=== PATIENT | male | born 1935 | race Caucasian/White ===

== ENCOUNTER 2017-09-05 05:30 | Day surgery (SDC) | payer MEDICARE, OTHER ==
[~2017-09-05] VITALS: Ht 180.3 cm; Wt 71.5 kg
[~2017-09-05 05:30] MED LIST: MECL25CH PO; RIVA20 PO; ROSU40 PO; TAB-TAB PO; ZOLP5TAB3 PO
[2017-09-05] MEDS ORDERED: IOHEXOL 350 MG/ML 50 ML BTL (for Cath Lab) OTHER ONE (05:31)
[2017-09-05] MEDS ORDERED: NS 1000P @30 MLS/HR (KVO) IV SCH (06:15)
[2017-09-05 06:25] VITALS: BP 123/57; PULSE 51; RESP 17; TEMP 97.7; O2SAT 99
[2017-09-05] MEDS ORDERED: APIX5TAB PO (06:31)
[2017-09-05] MEDS ORDERED: MULT400T PO (06:31)
[2017-09-05] MEDS ORDERED: ROSU20 PO (06:31)
[2017-09-05] MEDS ORDERED: META48.53 PO (06:31)
[2017-09-05] MEDS ORDERED: TUMS500C CHEW (06:31)
[2017-09-05] MEDS ORDERED: AMBI10TA PO (06:31)
[2017-09-05] MEDS ORDERED: STOO100C (06:31)
[2017-09-05 06:37] LABS: AUTOMATED NEUTROPHIL # 3.8 TH/MM3 (1.8-7.7); BASOPHIL % 0.7 % (0.0-2.0); EOSINOPHIL # 0.6 TH/MM3 (0-0.4); EOSINOPHIL % 10.1 % (0.0-4.0); HEMATOCRIT 41.5 % (39.0-51.0); HEMO FLAGS DIFF FINAL; LYMPH % 14.6 % (9.0-44.0); LYMPHOCYTE # 0.9 TH/MM3 (1.0-4.8); MEAN CELL VOLUME 92.4 FL (80.0-100.0); MEAN CORPUSCULAR HEMOGLOBIN 31.2 PG (27.0-34.0); MEAN CORPUSCULAR HGB CONC 33.8 % (32.0-36.0); NEUT % 63.6 % (16.0-70.0); PLATELET COUNT 135 TH/MM3 (150-450); RED BLOOD COUNT 4.49 MIL/MM3 (4.50-5.90); RED CELL DISTRIBUTION WIDTH 12.6 % (11.6-17.2)
[2017-09-05 06:54] LABS: BICARBONATE 26.7 MEQ/L (21.0-32.0)
[2017-09-05] MEDS ORDERED: HEPARIN-NS/PF INJ 1,000 ML ONE (07:26)
[2017-09-05] MEDS ORDERED: MIDAZOLAM HCL 2 MG/2 ML VIAL ONE (07:26)
[2017-09-05 07:35] LABS: APTT (PATIENT) 24.8 SEC (24.3-30.1); PROTHROMBIN TIME - PATIENT 11.4 SEC (9.8-11.6)
[2017-09-05] MEDS ORDERED: HEPARIN SODIUM - IV 10,000 UNITS/10 ML VIAL ONE (08:06)
--- NOTE | 2017-09-05 08:31 | CATHPROC ---
[facility] HIS Report Study Information Study Number Admission Scheduled Start Study Start [id number] Sep 05 2017 5:30AM 09/05/2017 Sep 05 2017 7:16AM [place] Service Cardiac Catheterization Admit Source Facility Department Other [facility] - [employer] Physician and Clinical Staff Initial Gaurav Washington Internship Coordinator Cecilio Lenz,PAUL Recorder Rupert Mckeon RCIS(BS) Scrub Carmelita Platt RCIS TECH2 Procedures Performed Procedure Location (Site) Vessel Name Coronary Angiograms LCA Left Coronary Coronary Angiograms RCA Right Coronary Wire insertion Fem Art (right) Femoral Art Equipment Time Defensive Fire Control Systems Operator Description Size Mfg Part Number Used/Scraped [id number] 07:42 WARNER VALERO SWAN MCKAYLA CATHETER FR 7 Used *[id number] TRANSDUCER, TRUWAVE [id number] 07:42 WARNER VALERO * Used W/STOCKCOCK *[id number] TRANSDUCER, TRUWAVE [id number] 07:42 WARNER VALERO * Used W/STOCKCOCK *[id number] *[id number] *[id number] *[id number] 07:42 MEDLINE INDUSTRIES PACK, CCL CUSTOM * Used *[id number] 07:42 Excelera PACER PEN, SKIN DUAL W/ RULER * Used *[id number] 07:44 MERIT MEDICAL SHEATH, FR6.5 PRELUDE 11CM FR 6.5 038ACT Used *[id number] 07:42 MERIT MEDICAL WIRE, 3MMJ .035 180CM 180CM Used *[id number] 07:42 NAMIC MANIFOLD, 2 PORT * Used *[id number] 07:42 NAMIC MANIFOLD, 4 PORT * Used *[id number] 07:56 NYCOMED OMNIPAQUE, 350 MG, 150ML 150ML [id number] Used [id number] 07:42 PEDRO MEDICAL BLANKET,WARM AIR CCL * Used *[id number] 07:42 TERUMO MEDICAL SHEATH, FR7 TERUMO (10CM) FR 7 Used *[id number] 08:05 [place] PRIME WIRE, VERRATA 185CM 185CM 19646 *[id number] Used Equipment Model, Serial, Lot Number and Expiration Data Description Model Number Serial Number Lot Number Expiration Date PRIME WIRE, VERRATA 185CM [id number] 07-14-2020 Labs Hgb (g/dl) Hct (%) RBC (MIL/MM3) WBC (l/cumm) Platelets (thousands) 11.60-17.00 35.00-51.00 4.00-5.90 4.00-11.00 150.00-450.00 14.0 41.5 4.4 6 135 Glucose (mg/dl) BUN (mg/dl) Creatinine (mg/dl) BUN:Creatinine (1:x) 74.00-106.00 7.00-18.00 0.50-1.30 10.00-20.00 87 17 1.0 17 Na (meq/l) K (meq/l) 136.00-145.00 3.50-5.10 140 4 CPK-MB (ng/ML) 0.50-3.60 Not Drawn Medication Medication Total Dose (Bolus/Oral) Medication Total Dosage/Unit 1% XYLOCAINE 20 mL HEPARIN 5000 units NTG (IC) 200 mcg VERSED 1 mg Medications (Bolus/Oral) Medication Time Given Dosage/Unit Administered By Reason VERSED 09/05/2017 7:39:51 AM 1 mg Cecilio Lenz 1 mg VERSED given in lab by Cecilio Lenz RN in Left Forearm via Peripheral IV. Ordered by Gaurav Valenzuela. 1% XYLOCAINE 09/05/2017 7:40:48 AM 20 mL Gaurav Valenzuela 20 mL 1% XYLOCAINE given in lab by Gaurav Valenzuela in Right Groin via Subcutaneous. Ordered by Gaurav Valenzuela. HEPARIN 09/05/2017 8:06:36 AM 5000 units Cecilio Lenz 5000 units HEPARIN given in lab by Cecilio Lenz, RN in Left Forearm via Peripheral IV. Ordered by Gaurav Corrales. NTG (IC) 09/05/2017 8:15:39 AM 200 mcg Gaurav Valenzuela 200 mcg NTG (IC) given in lab by Gaurav Valenzuela via Intra-coronary. Ordered by Gaurav Valenzuela. Medication (Drip) Medication Time Given Dosage/Unit Concentration/Unit Diluent (ml) Solution IV Solutions 09/05/2017 7:20:02 AM 0 mL (IV) 500 NaCl .9 Patient arrived on IV Solutions in Left Forearm via Peripheral IV. Pump/Drip Flow = 20 ml/hr using Na Cl .9. Ordered by Gaurav Valenzuela. Initial Case Assessment Cardiovascular HR Rhythm NIBP Chest Pain 52 SINUS ERASMO 137/64 0 Edema Present Skin color Skin None Normal Warm Dry Circulatory - Right Pulses Dorsalis Pedis Femoral 1 1 Scale (0,1,2,3,4,d) Circulatory - Left Pulses Dorsalis Pedis Femoral 1 1 Scale (0,1,2,3,4,d) Circulatory - Lower Extremities Color Lower Right Color Lower Left Normal Normal Neurological State Oriented to time-place- Alert Moves all extremities person Respiration - General Respiration Rate SpO2 (%) (B/min) 18 100 Chronological Log Time Study Chronological Log 7:19:45 Patient arrived via Bed. 7:19:46 Patient Name, D.O.B, / Armband Verified By R.N. 7:19:46 Consent signed by the physician and the patient and verified by the [employer] staff. 7:19:47 Pre-op and post- op instructions given; patient acknowledges understanding of instructions. 7:19:48 Verbal Stimulation=2 Physical Stimulation=2 Airway=2 Respiration=2 TOTAL=8. (0=absent, 1=li mited, 2=present) 7:19:53 Patient has been NPO for More than 6Hrs. 7:19:54 Skin Breakdown- 7:19:55 Patient Warmer Placed on the Table. 7:20:01 A # 20 IV was noted in the Forearm (left). Grade = 0 Patient arrived on IV Solutions in Left Forearm via Peripheral IV. Pump/Drip Flow = 20 ml/hr us ing NaCl .9. Ordered by 7:20:02 Gaurav Valenzuela. 7:20:03 History and physical on the chart or being dictated. Assessment: Initial Case, HR=52 BPM, Rhythm=SINUS ERASMO, LYQN=937/64 mmhg, Chest Pain=0, Edema=N one, Color=Normal, Skin = Warm, Dry Right Pulses: Stan Ped=1, Femoral=1 Left Pulses: Stan Ped=1, Femoral=1 7:20:04 Lower Right Extremities: Color=Normal Lower Left Extremities: Color=Normal Neurological: State=Alert, Ox3, LOPEZ Respiration: Resp=18 B/min, RvI2=563 % 7:26:01 Reference ECG taken Vitals capture started with the following parameters, Patient=Adult, Interval=5 min, Initial Pre yszhw=669 mmHg, 7:28:02 Deflation Rate=5 mmHg, Cuff placed on Right Arm 7:30:23 Vitals capture stopped. Vitals capture started with the following parameters, Patient=Adult, Interval=5 min, Initial Pre yatzy=581 mmHg, 7:30:47 Deflation Rate=5 mmHg, Cuff placed on Right Arm 7:31:29 HR=48 bpm, XFJQ=112/60 mmhg, SpO2=99.0 %, Resp=20 B/min, Pain=0, Gena=10, Espinoza=2 7:33:10 Right groin prepped with 2% chlorhexidine, and draped after a 3 min. waiting time. 7:35:12 MD arrived. 7:36:22 HR=51 bpm, OOMY=325/64 mmhg, HhA1=306.0 %, Resp=16 B/min, Pain=0, Gena=10, Espinoza=2 Time Out. Correct patient, correct procedure, correct physician, power injector loaded, or not l oaded with contrast with 7:38:00 surgical team present. Time Out Concurred by MD and individual staff in procedure. 7:39:00 Case Start 7:39:51 1 mg VERSED given in lab by Cecilio Lenz RN in Left Forearm via Peripheral IV. Ordered by Gaurav Valenzuela. 7:40:48 20 mL 1% XYLOCAINE given in lab by Gaurav Valenzuela in Right Groin via Subcutaneous. Ordered by Gaurav Valenzuela. 7:41:27 HR=50 bpm, YCQI=737/62 mmhg, XrU1=275.0 %, Resp=15 B/min, Pain=0, Gena=10, Espinoza=2 7:41:36 Pressure channel 1 zeroed. 7:43:36 Access site was Right Femoral Artery. 7:43:50 A SHEATH, FR6.5 PRELUDE 11CM FR 6.5 was advanced into the Fem Art (right) using the Percutan eous technique. 7:45:12 Access site was Right Femoral Vein. 7:45:30 A SHEATH, FR7 TERUMO (10CM) FR 7 was advanced into the Fem Vein (right) using the Percutaneo us technique. 7:45:42 A SWAN MCKAYLA CATHETER FR 7 was inserted via Fem Vein (right) 7:46:26 HR=47 bpm, HWAN=091/65 mmhg, SpO2=99.0 %, Resp=4 B/min, Pain=0, Gena=10, Espinoza=2 Recorded Pressure: RA, HR=52, Condition=Condition 1 7:47:52 (Right Atrium) RA /3/2 Recorded Pressure: RV, HR=51, Condition=Condition 1 7:48:17 (Right Ventricle) RV 24/-3/5 Recorded Pressure: PCW, HR=51, Condition=Condition 1 7:50:09 (Pulmonary Capillary Wedge) PCW Recorded Pressure: MPA, HR=60, Condition=Condition 1 7:50:26 (Main Pulmonary Artery) MPA 08/04/16 7:51:21 HR=54 bpm, ZQMC=269/79 mmhg, SpO2=78.0 %, Resp=18 B/min, Pain=0, Gena=10, Espinoza=2 Thermo CO: CO=3.9 l/m, HR=49 bpm, Condition=Condition 1. Used in calculation. 7:52:21 Equipment: Description and Size=SWAN MCKAYLA CATHETER FR 7, Type=Bath Probe, CC=0.579 Injectant: Temp=19.0 - 22.0 Celsius, Volume=10.0 ml Thermo CO: CO=3.9 l/m, HR=49 bpm, Condition=Condition 1. Used in calculation. 7:52:53 Equipment: Description and Size=SWAN MCKAYLA CATHETER FR 7, Type=Bath Probe, CC=0.579 Injectant: Temp=19.0 - 22.0 Celsius, Volume=10.0 ml 7:54:34 [place] Mckayla Catheter Removed A JL 5.0 INFINITI CATHETER FR 6 was advanced over a wire. OMNIPAQUE, 350 MG, 150ML 150ML was use d for 7:55:02 injections. Recorded Pressure: Ao, HR=49, Condition=Condition 1 7:56:16 (Aorta) Ao 126/46/76 7:56:26 HR=47 bpm, XHFF=354/61 mmhg, QbS4=287.0 %, Resp=9 B/min, Pain=0, Gena=10, Espinoza=2 7:56:56 The LCA was injected and visualized at various angles. OMNIPAQUE, 350 MG, 150ML 150ML used . 7:58:27 Catheter was removed A 3DRC INFINITI CATHETER FR 6 was advanced over a wire. OMNIPAQUE, 350 MG, 150ML 150ML was used for 7:58:28 injections. 8:00:22 The RCA was injected and visualized at various angles. OMNIPAQUE, 350 MG, 150ML 150ML used . 8:01:58 HR=45 bpm, HCXY=294/62 mmhg, Resp=6 B/min, Pain=0, Gena=10, Espinoza=2 8:04:45 Catheter was removed A JR 4.0 GUIDE CATHETER FR 6 was advanced over a wire. OMNIPAQUE, 350 MG, 150ML 150ML was used for 8:05:43 injections. 8:06:26 HR=50 bpm, GEAA=915/68 mmhg, SpO2=99.0 %, Resp=15 B/min, Pain=0, Gena=10, Espinoza=2 8:06:36 5000 units HEPARIN given in lab by Cecilio Lenz, PAUL in Left Forearm via Peripheral IV. Or dered by Gaurav Valenzuela. 8:08:22 Pressure channel 1 zeroed. 8:11:27 HR=53 bpm, XBAL=651/66 mmhg, HhJ9=581.0 %, Resp=14 B/min, Pain=0, Gena=10, Espinoza=2 8:12:17 A PRIME WIRE, VERRATA 185CM 185CM was inserted via Fem Art (right). 8:15:06 Interventional wire has crossed the lesion 8:15:39 200 mcg NTG (IC) given in lab by Gaurav Valenzuela via Intra-coronary. Ordered by Gaurav Valenzuela . 8:16:28 HR=59 bpm, GXFU=547/64 mmhg, TmS3=826.0 %, Resp=8 B/min, Pain=0, Gena=10, Espinoza=2 8:17:12 Flow Wire was was placed in the RCA. The FFR measures ~FFR~ percent. The IFR measures 0.9 3 Percent. 8:18:06 The PRIME WIRE, VERRATA 185CM 185CM was removed. 8:19:15 Catheter was removed 8:19:33 Case End 8:19:35 In the Fem Art (right) the SHEATH, FR6.5 PRELUDE 11CM FR 6.[address] by Gaurav Valenzuela. 8:20:44 In the Fem Vein (right) the SHEATH, FR7 TERUMO (10CM) FR [address] by Gaurav Valenzuela. 8:20:55 Sterile dressing applied to site 8:20:56 No case complications noted. 8:20:58 Cine recording checked. 8:21:00 Bedside Report will be given. 8:21:04 Contrast Scanned 8:21:06 A Left and Right Heart Cath was performed. 8:22:02 HR=55 bpm, YTBU=490/67 mmhg, SpO2=99.0 %, Resp=15 B/min, Pain=0, Gena=10, Espinoza=2 8:26:28 HR=51 bpm, TXRV=358/64 mmhg, GmF4=584.0 %, Resp=11 B/min, Pain=0, Gena=10, Espinoza=2 8:31:08 Patient moved to [facility] End Study - Contrast Media Used In Study Contrast Total Opened (mL) Total Used (mL) Total Wasted (mL) Omnipaque 45 45 0 End Study - Maximum Contrast Load Max Contrast Load (mL) 357.5 End Study - Radiation Exposure Fluoro Time (minutes) 10.2 End Study - Patient Disposition Complications Transferred To Telemetry Bed
[2017-09-05] MEDS ORDERED: SODIUM CHLOR 0.9% 1000 ML INJ 1,000 ML IV SCH (08:32)
[2017-09-05] MEDS ORDERED: ACETAMINOPHEN 325 MG TAB PO PRN (08:45)
[2017-09-05] MEDS ORDERED: oxyCODONE/ACETAMINOPHEN 5 MG/325 MG TAB PO PRN (08:45)
[2017-09-05] MEDS ORDERED: ONDANSETRON HCL 4 MG/2 ML VIAL IV PUSH PRN (08:45)
--- NOTE | 2017-09-05 09:02 | MA ---
cc: JOAQUÍN SRIVASTAVA M.D., JAVIER M.D. DATE 09/05/2017 PROCEDURE PERFORMED Right heart catheterization, coronary angiography. BRIEF HISTORY Reinaldo Jensen is an 82-year-old man with known severe aortic stenosis. Recently he developed an episode of light substernal chest pressure consistent with angina and he was advised to undergo cardiac cath. DESCRIPTION OF PROCEDURE The patient was brought to the cardiac laboratory phlebotomist in a fasting state. The right groin was prepped and draped in sterile fashion. Using 1% lidocaine for local anesthesia a 6.5-Marshallese sheath was inserted into the right femoral artery and right femoral vein. Right heart catheterization was then performed in a standard fashion using a [place]-Dre catheter coronary angiography was then completed using a left five Jose J for the left coronary artery and a 3DRC for the right coronary artery. The right coronary had borderline disease so it was decided to do IFR. A 6-Marshallese JR-4 guiding catheter was used to engage the right coronary artery, 200 mcg intracoronary nitroglycerin was given. The wires were placed distally in the distal portion of the right coronary artery beyond the bifurcation and the guide was backed out of the ostium for IFR measurement of 0.93 indicating stenoses were not hemodynamically significant. The catheter was removed. 5000 of heparin was given prior to this. The sheaths were sewn in place to be pulled later once the ACT comes down. There were no complications. FINDINGS I. HEMODYNAMICS Right atrial pressure was 6/3 with a mean of 2. Right ventricular pressure was 24/0 with an end-diastolic pressure of 5. Pulmonary artery pressure was 26/5 with a mean of 16. Pulmonary capillary wedge pressure was 9/7 with a mean of 6. Aortic pressure was 126/46 with a mean of 76. II. CORONARY ANGIOGRAPHY Prior to contrast administration there was extensive valvular and coronary artery calcification. The left main coronary artery is large and normal-appearing. The circumflex artery is diminutive in size and appears normal. The left anterior descending is a small-caliber. It gives off one major diagonal branch. The LAD stops short of the apex and appears normal. The diagonal branch also appears normal. Both these vessels are only 2-mm vessels. The right coronary artery is a large hyper-dominant vessel. The vessel has an ostial 40% stenosis. Distally there is probably 40% stenosis as well. There is a very large posterolateral branch system and significant posterior descending artery branch given off. IFR on the right coronary artery was 0.93. CONCLUSIONS 1. Known severe aortic stenosis. 2. The patient is symptomatic having had episode of chest pressure consistent with angina. 3. Normal right heart pressures. 4. Mild single-vessel coronary artery disease, not needing intervention. RECOMMENDATIONS Evaluation for TAVR. Joaquín Srivastava MD VEW/SSB /8:27 AM /8:52 AM
--- NOTE | 2017-09-05 09:49 | RADRPT ---
EXAM DATE/TIME: 09/05/2017 09:02 [place] COMPARISON: No previous studies available for comparison. INDICATIONS : Post op heart cath. MEDICAL HISTORY : None. SURGICAL HISTORY : None. ENCOUNTER: Initial ACUITY: 1 day PAIN SCORE: 0/10 LOCATION: Bilateral chest FINDINGS: 2 frontal views of the chest demonstrate the lungs to be symmetrically aerated without evidence of ma ss, infiltrate or effusion. The cardiomediastinal contours are unremarkable. Osseous structures are intact. CONCLUSION: No acute disease. Rajendra Cedeno Jr., MD on September 05, 2017 at 9:48 Board Certified Radiologist. This report was verified electronically.
--- NOTE | 2017-09-05 10:26 | EKG ---
Date Performed: 09/05/2017 Time Performed: 06:20:12 PTAGE: 82 years EKG: --- Warning: Data quality may affect interpretation --- Sinus bradycardia Prolonged QT inte rval Left axis deviation Possible anteroseptal infarct - age undetermined Inferior T wave changes are nonspecific Abnormal ECG Compared to prior tracing no significant change PREVIOUS TRACING : 12/28/2014 10.32 DOCTOR: Frank Ellis Interpretating Date/Time 09/05/2017 10:25:05
--- NOTE | 2017-09-05 15:40 | PD.CONS ---
History of Present Illness Service CT Surgery Consult Requested By Dr. Valenzuela Reason for Consult Severe aortic stenosis Primary Care Physician Emeka Barba MD Diagnoses: (1) Aortic stenosis (2) Diastolic CHF due to valvular disease (3) CAD (coronary artery disease) (4) Paroxysmal atrial fibrillation History of Present Illness 82y/o male with known h/o aortic valve disease x 10 yrs, recently presents with chest pressure at rest. He experienced this approximately a week ago and was seen by Dr. Valenzuela. He underwent ECHO which shows severe with a calculated AML of 0.44cm2, EF ~55%, mild to moderate AI and mild MR. LHC today is significant for mild single vessel CAD. He presents for evaluation for AVR. He has had a frailty evaluation and failed the walk test. He is otherwise active at home and independent. He has a h/o paroxysmal atrial fib for which he is anticoagulated. Review of Systems Constitutional: COMPLAINS OF: Fatigue, DENIES: Diaphoretic episodes, Fever, Weight gain, Weight loss, Chills, Dizziness, Change in appetite, Night Sweats Endocrine: DENIES: Heat/cold intolerance, Polydipsia, Polyuria, Polyphagia Eyes: DENIES: Blurred vision, Diplopia, Eye inflammation, Eye pain, Vision loss , Photosensitivity, Double Vision Ears, nose, mouth, throat: DENIES: Tinnitus, Hearing loss, Vertigo, Nasal discharge, Oral lesions, Throat pain, Hoarseness, Ear Pain, Running Nose, Epistaxis, Sinus Pain, Toothache, Odynophagia Respiratory: DENIES: Apneas, Cough, Snoring, Wheezing, Hemoptysis, Sputum production, Shortness of breath Cardiovascular: COMPLAINS OF: Chest pain, DENIES: Palpitations, Syncope, Dyspnea on Exertion, PND, Lower Extremity Edema, Orthopnea, Claudication Gastrointestinal: DENIES: Abdominal pain, Black stools, Bloody stools, Constipation, Diarrhea, Nausea, Vomiting, Difficulty Swallowing, Anorexia Genitourinary: DENIES: Sexual dysfunction, Urinary frequency, Urinary incontinence, Urgency, Hematuria, Dysuria, Nocturia, Penile Discharge, Testicular Pain, Testicular Swelling Musculoskeletal: DENIES: Joint pain, Muscle aches, Stiffness, Joint Swelling, Back pain, Neck pain Integumentary: DENIES: Abnormal pigmentation, Nail changes, Pruritus, Rash Hematologic/lymphatic: DENIES: Bruising, Lymphadenopathy Immunologic/allergic: DENIES: Eczema, Urticaria Neurologic: DENIES: Abnormal gait, Headache, Localized weakness, Paresthesias, Seizures, Speech Problems, Tremor, Poor Balance Psychiatric: DENIES: Anxiety, Confusion, Mood changes, Depression, Hallucinations, Agitation, Suicidal Ideation, Homicidal Ideation, Delusions Past Family Social History Allergies: Coded Allergies: No Known Allergies (Unverified , 09/05/17) Past Medical History BPH COPD Hyperlipidemia HTN MR PSVT as above Vertigo Past Surgical History Cardiac cath 07/13/2010 Cardioversion 06/2010 Tonsillectomy Reported Medications Magdieljg Vicky Eliquis Metamucil Multaq Stool softener Family History Dementia in mother Lymphoma - father Social History Retired from [employer] - 6yrs Remote smoking history - quit age 75 Physical Exam Vital Signs Vital Signs Date Time Temp Pulse Resp B/P (MAP) Pulse Ox O2 Delivery O2 Flow Rate FiO2 09/05/17 08:45 100 Room Air 09/05/17 06:25 97.7 51 17 123/57 (79) 99 Physical Exam GENERAL: This is a well-nourished, well-developed patient, in no apparent distress. SKIN: No rashes, ecchymoses or lesions. Cool and dry. HEAD: Atraumatic. Normocephalic. No temporal or scalp tenderness. EYES: Pupils equal round and reactive. Extraocular motions intact. No scleral icterus. No injection or drainage. ENT: Nose without bleeding, purulent drainage or septal hematoma. Throat without erythema, tonsillar hypertrophy or exudate. Uvula midline. Airway patent. NECK: Trachea midline. No JVD or lymphadenopathy. Supple, nontender, no meningeal signs. CARDIOVASCULAR: Irregular, 2/6 GHADA at the RUSB RESPIRATORY: Clear to auscultation. Breath sounds equal bilaterally. No wheezes , rales, or rhonchi. GASTROINTESTINAL: Abdomen soft, non-tender, nondistended. No hepato-splenomegaly , or palpable masses. No guarding. MUSCULOSKELETAL: Extremities without clubbing, cyanosis, or edema. No joint tenderness, effusion, or edema noted. No calf tenderness. Negative Homans sign bilaterally. NEUROLOGICAL: Awake and alert. Cranial nerves II through XII intact. Motor and sensory grossly within normal limits. Five out of 5 muscle strength in all muscle groups. Normal speech. Laboratory Laboratory Tests Test 09/05/17 06:00 09/05/17 06:55 White Blood Count 6.0 Red Blood Count 4.49 Hemoglobin 14.0 Hematocrit 41.5 Mean Corpuscular Volume 92.4 Mean Corpuscular Hemoglobin 31.2 Mean Corpuscular Hemoglobin Concent 33.8 Red Cell Distribution Width 12.6 Platelet Count 135 Mean Platelet Volume 8.9 Neutrophils (%) (Auto) 63.6 Lymphocytes (%) (Auto) 14.6 Monocytes (%) (Auto) 11.0 Eosinophils (%) (Auto) 10.1 Basophils (%) (Auto) 0.7 Neutrophils # (Auto) 3.8 Lymphocytes # (Auto) 0.9 Monocytes # (Auto) 0.7 Eosinophils # (Auto) 0.6 Basophils # (Auto) 0.0 CBC Comment DIFF FINAL Differential Comment Blood Urea Nitrogen 17 Creatinine 1.04 Random Glucose 87 Calcium Level 8.9 Sodium Level 140 Potassium Level 4.0 Chloride Level 105 Carbon Dioxide Level 26.7 Anion Gap 8 Estimat Glomerular Filtration Rate 69 Albumin 3.5 Prothrombin Time 11.4 Prothromb Time International Ratio 1.0 Activated Partial Thromboplast Time 24.8 Result Diagram: 09/05/17 0600 09/05/17 06 Imaging Last Impressions Chest X-Ray 09/05/17 0000 Signed Impressions: Service Date/Time: Tuesday, September 05, 2017 09:02 - CONCLUSION: No acute disease. Rajendra Cedeno Jr., MD Course Patient is s/p [facility] and is undergoing further testing today including CT scan. I reviewed his CXR and the aortic knob is circumferentially calcified. 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 He is at intermediate risk for open AVR with an estimated mortality risk of 3% , so TAVR is a reasonable option for him. If he does not desire TAVR or is deemed not a candidate, he would likely do well with a minimally invasive approach. Discussed Condition With Patient Problem Qualifiers (1) Aortic stenosis: Qualified Codes: I35.0 - Nonrheumatic aortic (valve) stenosis (2) CAD (coronary artery disease): Qualified Codes: I25.119 - Atherosclerotic heart disease of [place] coronary artery with unspecified angina pectoris Shanika Ochoa MD Sep 05, 2017 15:40
[2017-09-05] MEDS ORDERED: IOHEXOL 350 MG/ML 10 ML VIAL (for RAD DIAG) IVCONTRAST ONE (15:57)
[2017-09-05 16:09] LABS: BLOOD, URINE NEG (NEG); GLUCOSE,URINE NEG (NEG); KETONE, URINE 40 mg/dL (NEG); NITRITE,URINE NEG (NEG); PH, URINE 8.5 (5.0-8.5); URINE COLOR YELLOW (YELLW/STRAW)
[2017-09-05 16:23] LABS: COMMENT (UR) CULT NOT INDICATED; CULTURE IF INDICATED CULT NOT INDICATED
--- NOTE | 2017-09-05 17:51 | RADRPT ---
EXAM DATE/TIME: 09/05/2017 15:57 [place] COMPARISON: No previous studies available for comparison. INDICATIONS : Pre operative trans aortic valve replacement. IV CONTRAST: 99 cc Omnipaque 350 (iohexol) IV RADIATION DOSE: 48.75 CTDIvol (mGy) MEDICAL HISTORY : Hypertension. Chronic obstructive pulmonary disease. Cardiovascular disease SURGICAL HISTORY : None. ENCOUNTER: Initial ACUITY: 1 day PAIN SCALE: 0/10 LOCATION: Bilateral chest TECHNIQUE: Volumetric scanning was performed using a multi-row detector CT scanner. The data was post processed with a variety of visualization algorithms including full volume maximum intensity projection, multi -planar sliding thin slab reformation, curved planar reformation, and surface rendering techniques. Using automated exposure control and adjustment of the mA and/or kV according to patient size, radiat ion dose was kept as low as reasonably achievable to obtain optimal diagnostic quality images. DIC OM format image data is available electronically for review and comparison. FINDINGS: CARDIAC: The coronary system is right dominant. Extensive coronary artery calcifications. There is no pe ricardial effusion AORTIC ROOT/VALVE: 3 cusps are evident with extensive calcifications. The aortic root measures 3.2 cm. Mid ascending thoracic aorta measures 3.8 with minimal calcifications. THORACIC AORTA: Arch vessels are patent with scattered atherosclerotic calcification. ABDOMINAL AORTA: No evidence of aneurysm, mural thrombus, dissection, mural calcification, or stenosis. CELIAC ARTERY: Celiac artery is widely patent. SMA: Superior mesenteric artery is widely patent. RIGHT RENAL ARTERY: Right renal artery is widely patent. LEFT RENAL ARTERY: Left renal artery is widely patent. RIGHT COMMON ILIAC: Approximately 55% nonostial stenosis of the right common iliac artery. Right iliac system is otherwis e patent. Common femoral artery measures approximately 7.8 mm in diameter there is some perivascular thickening possibly representing a recent intervention. LEFT COMMON ILIAC: No evidence of aneurysm, mural thrombus, dissection or stenosis. Scattered atherosclerotic calcificat ion. THORAX: Biapical pleural-parenchymal scarring/thickening ABDOMEN: Distention of the gallbladder lumen. 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 Has the patient had a prior TURP? CONCLUSION: 1. Dense calcification of the aortic valve leaflets with dense calcification of the coronary arteries . Thoracic aortic measurements as above 2. 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 Would consider TAVR from left. 3. There is some mural thickening/stranding about the right common femoral artery. This may be second gibran to a recent intervention. 4. Gallbladder distention. 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 [place] aM MD on September 05, 2017 at 17:36 Board Certified Radiologist. This report was verified electronically.
--- NOTE | 2017-09-08 09:25 | RSPPFT ---
DATE OF PROCEDURE: 09/05/17 COMMENTS: Spirometry shows FVC of 3.8 at 95% of predicted, FEV1 of 2.1 at 70%, FEV1/FVC ratio is decreased. Flow is decreased at FEF 25, FEF 50, FEF 75 and FEF 25-75. Flow volume loops indicate an obstructive pattern. IMPRESSION: 1. Mild small airways obstructive lung disease. 2. Post-bronchodilator study was not performed.
== END 2017-09-05 18:21 | disposition home or self-care (01) ==
LOC: HDIC 05:30 → HDOC 05:30
PROVIDERS: ATTEND Internal Medicine Cardiovascular Disease
DX: I25.10 Atherosclerotic heart disease of native coronary artery without angina pectoris (principal); I35.0 Nonrheumatic aortic (valve) stenosis; I48.0 Paroxysmal atrial fibrillation; I11.0 Hypertensive heart disease with heart failure; I50.30 Unspecified diastolic (congestive) heart failure; I38 Endocarditis, valve unspecified; E78.5 Hyperlipidemia, unspecified; J44.9 Chronic obstructive pulmonary disease, unspecified; Z79.01 Long term (current) use of anticoagulants; Z87.891 Personal history of nicotine dependence
CPT/HCPCS: 71010; 74174; 80048; 81001; 82040; 85025; 85347; 85610; 85730; 86850; 86900; 86901; 87641; 93005; 93456; 93571; 94010; C1769; C1893; J1644; J2250; J7030; Q9967